=== PATIENT | female | born 1955 | race Caucasian/White ===

== ENCOUNTER 2019-01-05 19:12 | Emergency (ER) | payer BC ==
[~2019-01-05] VITALS: Ht 157.5 cm; Wt 79.8 kg
[2019-01-05] MEDS ORDERED: LORAZEPAM 2 MG/1 ML VIAL IV ONE (19:30)
[2019-01-05] MEDS ORDERED: NITROGLYCERIN 0.4 MG/TAB BOTTLE SL ONE ×2 (19:30→19:31)
[2019-01-05] MEDS ORDERED: ASPIRIN 325 MG TABLET ONE (19:30)
[2019-01-05] MEDS ORDERED: ASPIRIN 325 MG TABLET PO ONE (19:30)
--- NOTE | 2019-01-05 19:30 | NUR ---
Pt comes to ER with c/o chest pain rating is at 8/10 described as pressure. Pt states it started 30 min prior to arrival after she heard her mother had . No shortness of breath. No N/V/D. EKG done, saline lock placed. Meds given. Pt placed on continuous cardiac monitoring.
[2019-01-05] MEDS ORDERED: LORAZEPAM 2 MG/1 ML VIAL ONE (19:31)
[2019-01-05] MEDS ORDERED: METF-440 PO (19:43)
[2019-01-05] MEDS ORDERED: LEVO125T8 PO (19:43)
[2019-01-05] MEDS ORDERED: CEFU500T66 PO (19:43)
[2019-01-05 19:51] LABS: BASOPHILS % (AUTO) 0.6 % (0.0-2.0); EOSINOPHILS # (AUTO) 0.1 K/uL (0.0-0.7); EOSINOPHILS % (AUTO) 1.5 % (0.0-7.0); HEMATOCRIT 40.7 % (31.2-41.9); HEMOGLOBIN 13.3 g/dL (10.9-14.3); LYMPHOCYTES % (AUTO) 28.7 % (20.5-51.5); MEAN CORPUSCULAR HGB CONC 33 g/dL (32.3-35.6); MEAN CORPUSCULAR VOLUME 86.1 fL (75.5-95.3); MONOCYTES # (AUTO) 0.5 K/uL (2.0-10.0); MONOCYTES % (AUTO) 6.5 % (0.0-11.0); NEUTROPHILS # (AUTO) 4.3 K/uL (1.8-8.9); NEUTROPHILS % (AUTO) 62.7 % (38.5-71.5); PLATELET COUNT (AUTO) 146 K/uL (179-408); RED BLOOD CELL COUNT(AUTO) 4.73 MIL/uL (3.63-4.92); WHITE BLOOD COUNT (AUTO) 6.9 K/uL (3.8-11.8)
[2019-01-05 20:03] LABS: CREATININE 0.9 mg/dL (0.6-1.3); POTASSIUM 3.7 mmol/L (3.5-5.1)
[2019-01-05 20:16] LABS: BILIRUBIN,DIRECT 0.1 mg/dL (0.0-0.2); BILIRUBIN,TOTAL 0.3 mg/dL (0.2-1.0); TOTAL PROTEIN, SERUM 7.6 g/dL (6.4-8.2)
--- NOTE | 2019-01-05 20:39 | NUR ---
Pt is resting in bed comfortably. Pt states pain has subsided rating it now 0/10. at bedside. No acute distress noted.
--- NOTE | 2019-01-05 21:27 | NUR ---
Pt states she has no more pain. Vital signs are stable. States wants to go home now. at bedside.
--- NOTE | 2019-01-05 21:37 | NUR ---
IV removed. Catheter intact and site benign. Pressure and 4x4 gauze applied to site. No bleeding noted.
--- NOTE | 2019-01-05 21:38 | NUR ---
Patient does not wish to proceed with medical care recommended by Dr. Blum. Patient given information related to possible complications, up to and including , which could occur as a result of leaving the hospital at this time. Patient verbalizes understanding of risks involved due to leaving against medical advice. Patient has signed AMA form.
--- NOTE | 2019-01-05 21:40 | NUR ---
Patient discharged to home in stable conditon. Written and verbal after care instructions given. Patient verbalizes understanding of instructions. Pt left ER in stable gait with who will drive home. All belongings w pt. VSS.
[2019-01-05 21:41] VITALS: BP 139/79
== END 2019-01-05 21:42 | disposition left against medical advice (07) ==
LOC: ER 19:12
DX: R07.9 Chest pain, unspecified (principal); R42 Dizziness and giddiness; R06.02 Shortness of breath; E78.5 Hyperlipidemia, unspecified; E11.9 Type 2 diabetes mellitus without complications; Z88.2 Allergy status to sulfonamides; Z79.899 Other long term (current) drug therapy
CPT/HCPCS: 36415; 71045; 80048; 80076; 83880; 84484; 85025; 85730; 93005 ×2; 96374; 99284; J2060; 70030-TC; A4663